=== PATIENT | male | born 1945 | race Caucasian/White ===

== ENCOUNTER 2022-01-29 09:52 | Day surgery (SDC) | payer OTHER ==
[2022-01-29] VITALS (10 sets, daily range): BP systolic 103–1009; BP diastolic 58–86; PULSE 55–75; TEMP 98.2–98.7
[~2022-01-29] VITALS: Ht 172.7 cm; Wt 77.0 kg
[2022-01-29] MEDS ORDERED: ENBREL IM (11:28)
[2022-01-29] MEDS ORDERED: MOTRIN 800800 MG/TAB PO (11:28)
[2022-01-29] MEDS ORDERED: PRILOSEC 20MG20 MG PO (11:28)
[2022-01-29] MEDS ORDERED: FLOMAX 0.40.4 MG/CAP PO (11:29)
[2022-01-29] MEDS ORDERED: COZAAR 50MG50 MG/TAB PO (11:29)
[2022-01-29] MEDS ORDERED: ASPIRIN E.C. 8181 MG PO (11:30)
[2022-01-29] MEDS ORDERED: FINASTERIDE (11:30)
--- NOTE | 2022-01-29 11:34 | NUR ---
1130 - Urine sample sent to lab via RN, for UDS
--- NOTE | 2022-01-29 16:51 | NUR ---
Patient received post op. CBI to moderate rate. Gerrard tinged output. Vss on room air. Scds ble. Iv to Int. Food ordered. Denies nausea. at bedside
--- NOTE | 2022-01-29 19:31 | NUR ---
Patient Cbi continues to infuse at a slow to moderate rate, pink tinged output. He did well with Dinner. Scds ble. Spinal starting to wear off. Bedside report to Kim.
--- NOTE | 2022-01-30 02:10 | NUR ---
SHIFT REPORT FROM MARIANGEL APODACA. PATIENT ALERT AND ORIENTED. CBI INFUSING SLOW. URINE IS CLEAR/PEACH. IV TO INT. TOLERATING GENERAL DIET. PATIENTS LEGS STILL "HEAVY". SCD'S IN PLACE. HS MEDS PER EMAR. DENIES ADDITIONAL NEEDS.
[2022-01-30 03:02] VITALS: BP 126/75; PULSE 71; TEMP 97.8
[2022-01-30 07:42] VITALS: BP 146/79; PULSE 76; TEMP 98.9
--- NOTE | 2022-01-30 08:22 | NUR ---
Patient in bed watching TV. Alert and oriented x4. INT on left hand intact. No redness noted. Continuous bladder irrigation infusing noted about 800 pinkish urine in the bag. Bowel sound active, SCD in place. Patient requested to have SCD off for few minutes. SCD removed per patient's request. Patient denies pain at this time. Will continue to monitor patient.
--- NOTE | 2022-01-30 10:34 | NUR ---
SW met with patient to complete intake. Patient states that he lives in [facility] with Jaki [phone]. Patient states that he does not utilize DME at this time. Is independent with ADLs, and does not utilize any HH services at this time. PCP is Dr. Smith of the [place] and pharmacy is the [place] as well, if local medications are needed patient states that he obtains medications to [facility]. has been appointed as DPOA of . Patient plans to return to his home upon DC. SW will continue to follow. DC plan: home
[2022-01-30 12:00] VITALS: BP 153/74; PULSE 84; TEMP 98.3
--- NOTE | 2022-01-30 12:08 | NUR ---
Montemayor catheter discontinued per Provider's order. Patient tolerated the procedure well. Urinal and six cups for urine measurements placed in the bathroom.Instruction given to patient to use the call bernardo when needing to void. Patient verbalized understanding.
--- NOTE | 2022-01-30 13:09 | NUR ---
[employer] rounds: [employer] visit attempted. 2 RN were in room at the time so glue spreader visit not completed.
--- NOTE | 2022-01-30 15:30 | NUR ---
Patient is up using the bathroom to void. Patient has been voiding red urine in color and complain of abdominal discomfort. Patient is anxious about the color of the urine . Reassured patient and educate him on what to look after discontinuation of butcher cather and procedure. Patient verbalized understanding . Call bernardo place within reach .
[2022-01-30 16:00] VITALS: BP 149/85; PULSE 77; TEMP 97.7
--- NOTE | 2022-01-30 17:01 | NUR ---
Patient has voided 5 cups of dark urine after discontinued butcher catheter. Spoke to Dr. Augustin via phone to verify patient's discharge. Provider order to keep patient for the night until urine gets more clear before discharging home. Message relay to patient and patient verbalized understanding.
--- NOTE | 2022-01-30 18:19 | NUR ---
Patient finished up all the 6 cups urine collection. Patient is voiding dark red urine. Sixth cup emptied and restart the collection after each voiding. Instructions given to patient to call nurse after urination. Patient verbalized understanding.
[2022-01-30 20:23] VITALS: BP 136/76; PULSE 72; TEMP 98.3
[2022-01-30 23:48] VITALS: BP 128/70; PULSE 66; TEMP 98
[2022-01-31 03:45] VITALS: BP 131/71; PULSE 71; TEMP 98.3
[2022-01-31 07:42] VITALS: BP 117/69; PULSE 74; TEMP 98.3
--- NOTE | 2022-01-31 09:13 | NUR ---
Pt doing well and is up independently in the room. He has no pain complaints. Pt has had breakfast with no complaints. He is voiding without difficulty.
--- NOTE | 2022-01-31 12:36 | NUR ---
Reviewed discharge instructions with pt and his . Reviewed calling to make follow up apponitment. INT removed from left hand and pt escorted out.
== END 2022-01-31 12:37 | disposition home or self-care (01) ==
LOC: SDCO 09:52 → SURG 15:17 → SDCO 01-31 12:37
DX: N40.1 Benign prostatic hyperplasia with lower urinary tract symptoms (principal); N13.8 Other obstructive and reflux uropathy; R35.1 Nocturia; R35.0 Frequency of micturition; R39.198 Other difficulties with micturition; R39.15 Urgency of urination; R39.12 Poor urinary stream; I10 Essential (primary) hypertension; K21.9 Gastro-esophageal reflux disease without esophagitis; Z79.82 Long term (current) use of aspirin
CPT/HCPCS: OP; J0690; J2250; J2405; J2704; J3010; J7120